=== PATIENT | male | born 1980 | race Caucasian/White ===

== ENCOUNTER → 2018-11-20 | Outpatient (CLI) | payer BC ==
[~2018-11-20] MED LIST: IOPAMIDOL 370 MG/ML 200 ML INFUS..BTL INJ ONE; METOPROLOL TARTRATE 25 MG TAB ONE; METOPROLOL TARTRATE INJ 1 MG/ML VIAL ONE; NITROGLYCERIN 0.4 MG SUBL ONE; SODIUM CHLORIDE 0.9% 100 ML 100 ML ONE
--- NOTE | 2018-11-20 14:00 | Diagnostic Imaging Report ---
EXAM: CALCIUM SCORE AND CORONARY CTA INDICATION: ^[id number] ^1050 ^ABNORMAL STRESS TEST COMPARISON: None. TECHNIQUE: Multi-detector CT technology was employed (64 [employer] Minimal slice thickness with retrospective gating was performed before and after the intravenous administration of contrast material. The patient was premedicated with 25 mg by mouth and 7.5 mg i.v. metoprolol and 0.4 mg sublingual nitroglycerin for heart rate control and coronary dilation, respectively. IV CONTRAST: 100 mL of Isovue-370 ORAL CONTRAST: None COMPLICATIONS: None RADIATION DOSE: Total DLP: 1845.6 mGy*cm Estimated effective dose: (DLP x 0.015 x size factor) mSv CTDIvol has been reviewed. It is below the limits set by the Radiation Protocol Committee (RPC). For optimization of anatomic evaluation, multiplanar reconstruction, maximum intensity projections, and advanced 3-D off-line postprocessing were performed on a dedicated stand-alone workstation under the direct supervision of the interpreting physician. QUALITY: Good except for motion in the mid RCA. FINDINGS: CALCIUM SCORE: The observed Agatston Calcium Score of 0. The Agatston score for each vessel is as follows: LM: 0 LAD: 0 LCx: 0 RCA: 0 DISTRIBUTION OF THE CALCIFIED PLAQUES: No identifiable calcified plaques in the coronary arteries. CORONARY ANATOMY: There is normal origin of the coronary arteries. Left Main Coronary Artery: The left main is normal sized vessel that bifurcates into the LAD and circumflex. There is no evidence of atherosclerotic changes or stenotic disease. Left Anterior Descending Coronary Artery: The LAD is a normal size vessel that wraps around the apex. It gives rise to 2 acute diagonal branches. There is no evidence of atherosclerotic changes or stenotic disease. Left Circumflex Coronary Artery: The LCX is a normal size vessel, which is non-dominant. It gives rise to 2 obtuse marginal branches. There is no evidence of atherosclerotic changes or stenotic disease. Right Coronary Artery: The RCA, which is dominant, is a normal size vessel in the proximal segment, and becomes small at the AV groove. There is a normal variant with early bifurcation at the AV groove giving off the PDA and a large posterolateral ventricular branch. There is separate ostium of the conus branch. Mild motion artifact limits evaluation of the mid segment, otherwise, no evidence of atherosclerotic changes or stenotic disease. There is good contrast opacification of the distal branches. CARDIAC MORPHOLOGY AND FUNCTION: The right and left atria and ventricles are morphologically normal. There is normal resting global left ventricular systolic function. LVEF: LVEF %, LV end diastolic volume: LVEDV cc LV end systolic volume: LVESV cc LV stroke volume: LVSV cc LIMITED CHEST: Limited views of the visualized chest show no abnormality within chest wall and mediastinum. No mediastinal lymphadenopathy. The visualized lungs are clear. The visualized portions of the ascending and descending thoracic aorta are of normal size. Small hiatal hernia. LIMITED ABDOMEN: Limited images of the upper abdomen reveal no abnormalities of the visualized organs. BONES: No acute osseous abnormalities. IMPRESSION: 1. Total Agatston Calcium Score: 0. 2. Normal coronary anatomy variant with early bifurcation of the RCA at the AV groove. 3. Mild motion artifact limits evaluation of the mid RCA otherwise, no atherosclerotic changes or stenotic disease. CAD-MARTHA 0 Reference: [email or web address] 4. Small hiatal hernia. Signed by: Dr. Cristy Laguerre M.D. on 11/20/2018 1:57 PM
== END ==
LOC: CT 08:29
PROVIDERS: ATTEND Internal Medicine
DX: R94.39 Abnormal result of other cardiovascular function study (principal)
CPT/HCPCS: 75574; Q9967